=== PATIENT | female | born 1965 | race Caucasian/White ===

== ENCOUNTER 2017-11-22 06:51 | Day surgery (SDC) | payer MEDICAID ==
[2017-10-18 09:15] VITALS: BMI 35.4
[2017-11-22] MEDS ORDERED: Propofol 10 mg/ml Inj (20 ML) ONE ×2 (07:49→08:42)
[2017-11-22] MEDS ORDERED: Sodium Chloride 0.9% 1,000 ML IV SCH (08:00)
[2017-11-22 09:29] VITALS: PULSE 70; O2SAT 99
[2017-11-22 15:01] VITALS: BP 122/76; RESP 18; TEMP 98.1
== END 2017-11-22 10:35 | disposition home or self-care (01) ==
LOC: ENDO 06:51
PROVIDERS: ATTEND Internal Medicine Gastroenterology
DX: K63.5 Polyp of colon (principal); K29.30 Chronic superficial gastritis without bleeding; K21.0 Gastro-esophageal reflux disease with esophagitis; K64.1 Second degree hemorrhoids; Z85.3 Personal history of malignant neoplasm of breast; Z90.12 Acquired absence of left breast and nipple
CPT/HCPCS: 43239; 45380; 88305; 88312; 88342; J2001; J2704; J7030; J7040

== ENCOUNTER 2018-06-06 07:43 | Day surgery (SDC) | payer MEDICAID ==
[2017-10-18 09:15] VITALS: BMI 35.4
[2018-06-06] MEDS ORDERED: Propofol 10 mg/ml Inj (20 ML) ONE (09:03)
[2018-06-06] MEDS ORDERED: Esmolol 100 mg/10ml Inj IV ONE (09:16)
[2018-06-06] MEDS ORDERED: Lactated Ringer's 1,000 ML IV SCH (09:30)
[2018-06-06 16:21] VITALS: BP 115/72; PULSE 71; RESP 16; TEMP 97.5; O2SAT 98
== END 2018-06-06 11:23 | disposition home or self-care (01) ==
LOC: ENDO 07:43
PROVIDERS: ATTEND Internal Medicine Gastroenterology
DX: Z12.11 Encounter for screening for malignant neoplasm of colon (principal); K57.30 Diverticulosis of large intestine without perforation or abscess without bleeding; K64.1 Second degree hemorrhoids; Z86.010 Personal history of colon polyps
CPT/HCPCS: 45378; J2001; J2704; J7120

== ENCOUNTER 2018-06-07 21:39 | Emergency (ER) | payer MEDICAID ==
--- NOTE | 2018-06-07 21:41 | ED PDOC ---
Arrival/HPI - General Chief Complaint: Headache Time Seen by Provider: 06/07/18 21:52 Historian: Patient - History of Present Illness Narrative History of Present Illness (Text): 06/07/18 22:17 53 y/o female with PMH of breast cancer, RA, migraines presents to the ED c/o diplopia, chest pressure, and headache x 1 hour. Pt was watching TV when she had acute onset of headache. Describes headache as frontal pressure, typical of her usual migraines, Associated diplopia, photophobia, mild nausea. Pt has never experienced visual changes with her migraines, which she typically gets 2-3 times a year. Diplopia has improved since onset. Pt began to experience left sided chest pressure and SOB while walking to the [facility] ED. She left the [facility] ED without being seen and came here to be evaluated because they were being "unprofessional". Does not have a neurologist or a pest control chemical technician. Of note, pt received first MTX shot for RA approx 1 week ago. Denies fever, chills, cough, congestion, vertigo, dizziness, weakness, numbness, paresthesias, facial droop, difficulty speaking, difficulty walking, palpitations, miguel phoresis, or any other associated symptoms. PMD: Dr. 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) - Anesthesia Hx Anesthesia Reactions: No Hx Malignant Hyperthermia: No - Suicidal Assessment Feels Threatened In Home Enviroment: No Family/Social History - Physician Review Nursing Documentation Reviewed: Yes Family/Social History: No Known Family HX Smoking Status: Never Smoked Hx Alcohol Use: No Hx Substance Use: No Hx Substance Use Treatment: No Allergies/Home Meds Allergies/Adverse Reactions: Allergies iodine Allergy (Intermediate, Verified 06/07/18 21:50) RASH adhesive tape Allergy (Verified 06/07/18 21:50) URTICARIA Home Medications: Home Meds Medication Instructions Recorded Confirmed Zolpidem [Ambien] 5 mg PO HS PRN 10/18/17 06/07/18 Omeprazole 20 mg PO DAILY 06/02/18 06/07/18 Methotrexate [Methotrexate Sodium] 25 mg IJ Q2W 06/06/18 06/07/18 Acetaminophen [Tylenol Arthritis] 650 mg PO PRN PRN 06/07/18 06/07/18 Review of Systems - Physician Review All systems were reviewed & negative as marked: Yes - Review of Systems Constitutional: Normal. absent: Fatigue, Fevers Eyes: Vision Changes (diplopia, blurry vision), Photophobia. absent: Eye Pain ENT: Normal. absent: Hearing Changes, Sore Throat, Sinus Congestion Respiratory: SOB. absent: Cough Cardiovascular: Chest Pain. absent: Palpitations, Syncope Gastrointestinal: Normal. absent: Abdominal Pain, Stool Changes, Nausea, Vomiting Genitourinary Female: Normal. absent: Dysuria, Frequency Musculoskeletal: Normal. absent: Back Pain, Neck Pain Skin: Normal. absent: Rash Neurological: Headache. absent: Dizziness, Focal Weakness, Gait Changes, Speech Changes, Facial Droop, Disequilibrium, Seizure Endocrine: Normal Hemo/Lymphatic: Normal Psychiatric: Normal Physical Exam Vital Signs Reviewed: Yes Temperature: Afebrile Blood Pressure: Normal Pulse: Regular Respiratory Rate: Normal Appearance: Positive for: Well-Appearing, Non-Toxic, Comfortable Pain Distress: None Mental Status: Positive for: Alert and Oriented X 3 - Systems Exam Head: Present: Atraumatic, Normocephalic Pupils: Present: PERRL, Pinpoint Extroacular Muscles: Present: EOMI Conjunctiva: Present: Normal Ears: Present: Normal, NORMAL TM Mouth: Present: Moist Mucous Membranes Pharnyx: Present: Normal. No: ERYTHEMA, EXUDATE Nose (External): Present: Atraumatic Nose (Internal): Present: Normal Inspection Neck: Present: Normal Range of Motion. No: Meningeal Signs, MIDLINE TENDERNESS, Paraspinal Tenderness Respiratory/Chest: Present: Clear to Auscultation, Good Air Exchange, Tender to Palpation (left sided ). No: Respiratory Distress, Accessory Muscle Use Cardiovascular: Present: Regular Rate and Rhythm, Normal S1, S2, Peripheal Pulses Present Abdomen: Present: Normal Bowel Sounds. No: Tenderness, Distention, Peritoneal Signs, Rebound, Guarding Back: Present: Normal Inspection. No: CVA Tenderness, Paraspinal Tenderness Upper Extremity: Present: Normal Inspection, Normal ROM, NORMAL PULSES, Neurovascularly Intact, Capillary Refill < 2s. No: Cyanosis, Edema Lower Extremity: Present: Normal Inspection, NORMAL PULSES, Normal ROM, Neurovascularly Intact, Capillary Refill < 2 s. No: Edema Neurological: Present: GCS=15, CN II-XII Intact, Speech Normal, Motor Func Grossly Intact, Normal Sensory Function, Normal Cerebellar Funct, Gait Normal (no ataxia), Memory Normal Skin: Present: Warm, Dry, Normal Color. No: Rashes, Hot Lymphatic: No: Cervical Adenopathy Psychiatric: Present: Alert, Oriented x 3, Normal Insight, Normal Concentration, Normal Affect, Normal Mood Medical Decision Making ED Course and Treatment: 06/07/18 22:05 Initial Plan: * CBC, CMP * Mg, Phos * Coags * PT/PTT * Troponin * UA, UDS * EKG * CXR * Head CT * Visual Acuity * Reglan * IVF On initial exam, patient appears uncomfortable but in no acute distress. Neurological exam normal except for bilateral pinpoint pupils, patient states they have been like that for approx. 3-4 days. Denies drug use. NIHSS 0. Case reviewed with Dr. Nichols who agrees with plan of care and disposition. EKG: rate 81; NSR; Normal Intervals; No STEMI, nonspecific ST/T wave changes in precordial leads, predominantly V1-3 Will hold ASA until head CT shows no ICH. 22:22 Patient ambulated to the bathroom with no assistance without difficulty. No ataxia. 22:43 Diplopia, SOB, and chest pain completely resolved. Labwork unremarkable CXR: no active disease 23:[address]: negative for acute intracranial pathology Headache has completely resolved. Patient well appearing. Neurological exam unchanged. 00:00 Recommended that patient stay overnight for observation secondary to chest pain and diplopia, although currently resolved. Patient wishes to leave AMA, states she feels fine. Lengthy discussion had with patient regarding risks vs. benefits of leaving AMA. Benefits include but not limited to inpatient observation, further evaluation and treatment of symptoms, neurology consult, cardiology consult, further brain imaging. Risks to leaving include but are not limited to , disability, worsening of symptoms, stroke, vision loss. Patient verbalized understanding. The patient is choosing to leave against medical advice. I have personally explained to the patient that choosing to do so may result in permanent bodily harm, disability, or . I have discussed at great length that without further evaluation and monitoring there may be unforeseen circumstances and/or deterioration causing permanent bodily harm or as a result of their choice. The patient is alert, oriented, and shows the mental capacity to make clear decisions regarding the patients health care at this time. The patient continues to wish to leave against medical advice. In light of the patients decision to leave against medical advice, follow-up has been arranged and the patient is aware of the importance to following up as instructed. The patient has been advised that they should return to the emergency room immediately if they change their mind at any time, or if their condition begins to change or worsen in any way. AMA form signed by me and patient, Hair witnessed. Patient states she will followup with her PMD tomorrow. Followup provided for ophthalmology, neurology, and cardiology. - Lab Interpretations Lab Results: 06/07/18 22:00 06/07/18 22:00 Lab Results 06/07/18 22:41: Influenza Typ A,B (EIA) Negative for flu a/b 06/07/18 22:24: Urine Opiates Screen Negative, Urine Methadone Screen Negative, Ur Barbiturates Screen Negative, Ur Phencyclidine Scrn Negative, Ur Amphetamines Screen Negative, U Benzodiazepines Scrn Negative, U Oth Cocaine Metabols Negative, U Cannabinoids Screen Negative 06/07/18 22:24: Urine Color Light yellow, Urine Appearance Clear, Urine pH 6.0, Ur Specific [place] >= 1.030, Urine Protein Trace H, Urine Glucose (UA) Negative, Urine Ketones Negative, Urine Blood Trace-lysed H, Urine Nitrate Negative, Urine Bilirubin Negative, Urine Urobilinogen 0.2, Ur Leukocyte Esterase Negative, Urine RBC 0 - 2, Urine WBC None, Ur Epithelial Cells None 06/07/18 22:00: PT 11.7, INR 1.03, APTT 27.9 06/07/18 22:00: WBC 7.8, RBC 4.00, Hgb 12.3, Hct 36.9, MCV 92.3, MCH 30.8, MCHC 33.3, RDW 13.4, Plt Count 289, MPV 10.0, Gran % 63.1, Lymph % (Auto) 25.7, Wilkinson % (Auto) 9.7 H, Eos % (Auto) 1.4 L, Baso % (Auto) 0.1, Gran # 4.94, Lymph # (Auto) 2.0, Wilkinson # (Auto) 0.8 H, Eos # (Auto) 0.1, Baso # (Auto) 0.01 06/07/18 22:00: Sodium 140, Potassium 4.0, Chloride 106, Carbon Dioxide 25, Anion Gap 14, BUN 25 H, Creatinine 1.2, Est GFR ( Amer) 57, Est GFR (Non- Af Amer) 47, Random Glucose 154 H, Calcium 9.1, Phosphorus 4.3, Magnesium 1.8, Total Bilirubin 0.3, AST 25, ALT 33, Alkaline Phosphatase 84, Troponin I < 0.01, Total Protein 7.1, Albumin 4.1, Globulin 3.1, Albumin/Globulin Ratio 1.3 I have reviewed the lab results: Yes - RAD Interpretation Narrative RAD Interpretations (Text): EXAM: CT Head without Intravenous Contrast. CLINICAL HISTORY: HEADACHE TECHNIQUE: Axial computed tomography images of the head/brain without intravenous contrast. 1079.16 mGy-cm COMPARISON: None provided. FINDINGS: BRAIN No acute intraparenchymal hemorrhage. No mass lesion. No CT evidence for acute territorial infarct. No midline shift or extra-axial collections. VENTRICLES: No hydrocephalus. ORBITS: The orbits are unremarkable. SINUSES AND MASTOIDS: The paranasal sinuses and mastoid air cells are clear. BONES: No fracture. SOFT TISSUES: Unremarkable. IMPRESSION: No acute intracranial abnormality. Electronically signed on Jun 07, 2018 11:27:31 PM EST by: Savage Shah M.D., COLLEEN Certified By ABR & CBC[facility] Fellowship Trained MRI and CT Specialist EXAM: CXR No active disease, read by [facility] Orders: 06/07/18 22:00 HEAD W/O CONTRAST [CT] Stat CHEST PORTABLE [RAD] Stat Perforator Typist: ED Physician - EKG Interpretation EKG Interpretation (Text): 06/07/18 23:36 Rate 81; NSR; Normal Intervals; No STEMI, nonspecific ST/T wave abnormalities predominantly in V1-V3 Interpreted by ED Physician: Yes Type: 12 lead EKG Comparison: Different from prev. EKG (08/03/14) NIHSS Scale (Blain) Time Performed: 22:04 - How Severe is the Stoke Baseline Level of Consciousness: 0=Alert LOC to Questions: 0=Both comments correct LOC to commands: 0=Obeys both correctly Best Gaze: 0=Normal Visual: 0=No visual loss Facial: 0=Normal Motor Arm - Left: 0=No drift Motor Arm - Right: 0=No drift Motor Leg - Left: 0=No drift Motor Leg - Right: 0=No drift Limb Ataxia: 0=Absent Sensory: 0=Normal Best Language: 0=No aphasia Dysarthia: 0=Normal articulation Extinction & Inattention (Neglect): 0=Normal, no object Score: 0 Risk Level: No Stroke Risk MEREDITH Risk Score for UA/NSTEMI - MEREDITH Risk Score Age > 64: NO 3 or more CAD Risk Factors: NO Known CAD (Stenosis greater than 50%): NO Aspirin use in past 7 days: NO Severe Angina: NO EKG ST changes greater than 0.5mm: NO Positive Cardiac Marker: NO MEREDITH Score: 0 % risk at 14 days of: all cause mortality, new or recurrent VA, or severe recurrent ischemia requiring urgen revascularization: 5% Disposition/Present on Arrival - Present on Arrival Any Indicators Present on Arrival: No History of DVT/PE: No History of Uncontrolled Diabetes: No Urinary Catheter: No History Surgical Site Infection Following: None - Disposition Have Diagnosis and Disposition been Completed?: No Diagnosis: Diplopia, Headache, Chest pain, Left against medical advice Disposition: AGAINST MEDICAL ADVICE Disposition Time: 00:30 Condition: GUARDED Discharge Instructions (ExitCare): Double Vision, Headache, Adult (DC), Leaving Against Medical Advice, Chest Pain (ED) Additional Instructions: Followup with primary doctor tomorrow Followup with neurology tomorrow Followup with cardiology tomorrow Followup with ophthalmology tomorrow Return to ER if you wish to be re-evaluated or if you have any new/worsening symptoms Referrals: Chaim Wright JD, MD [Primary Care Provider] - Follow up with primary Pernell Mcclure MD [Staff Provider] - Follow up with primary Jovanni Valencia MD [Staff Provider] - Follow up with primary Lupillo Cintron MD [Staff Provider] - Follow up with primary Forms: [employer] (Turkish), WORK NOTE
[2018-06-07 21:50] VITALS: O2SAT 99; BMI 34.9
[2018-06-07 22:19] LABS: BASO # 0.01 K/mm3 (0.0-2.0); BASO % 0.1 % (0.0-3.0); EOS # 0.1 (0.0-0.7); EOS % 1.4 % (1.5-5.0); GRAN # 4.94 (1.4-6.5); GRAN % 63.1 % (50.0-68.0); HEMOGLOBIN 12.3 g/dL (12.0-16.0); LYMPH % 25.7 % (22.0-35.0); MEAN CELL VOLUME 92.3 fl (80.0-105.0); MEAN CORPUSCULAR HEMOGLOBIN 30.8 pg (25.0-35.0); MEAN CORPUSCULAR HGB CONC 33.3 g/dl (31.0-37.0); MONO # 0.8 (0.1-0.6); MONO % 9.7 % (1.0-6.0); RED CELL DISTRIBUTION WIDTH 13.4 % (11.5-14.5); WHITE BLOOD COUNT 7.8 10^3/uL (4.5-11.0)
[2018-06-07 22:28] LABS: URINE BILIRUBIN NEGATIVE (NEGATIVE); URINE BLOOD TRACE-LYSED (NEGATIVE); URINE GLUCOSE (UA) NEGATIVE (NEGATIVE); URINE LEUKOCYTE ESTERASE NEGATIVE Leu/uL (NEGATIVE); URINE PROTEIN TRACE mg/dL (<30 mg/dL); URINE UROBILINOGEN 0.2 E.U./dL (<1 E.U./dL)
[2018-06-07 22:29] LABS: URINE APPEARANCE CLEAR (CLEAR); URINE COLOR LIGHT YELLOW (YELLOW)
[2018-06-07 22:31] LABS: URINE RBC 0 - 2 /hpf (0-2)
[2018-06-07 22:36] LABS: INR 1.03; PARTIAL THROMBOPLASTIN TIME 27.9 Seconds (25.1-36.5); PROTHROMBIN TIME 11.7 SECONDS (9.4-12.5)
[2018-06-07 22:39] LABS: ALB/GLOB RATIO 1.3 (1.1-1.8); ALBUMIN 4.1 g/dL (3.0-4.8); ALT/SGPT 33 U/L (7-56); AST/SGOT 25 U/L (14-36); BLOOD UREA NITROGEN 25 mg/dL (7-21); CALCIUM 9.1 mg/dL (8.4-10.5); GFR NON-AFRICAN AMERICAN 47
[2018-06-07] MEDS ORDERED: Sodium Chloride 0.9% 1,000 ML IV STA (22:47)
[2018-06-07 22:50] LABS: TROPONIN I < 0.01 ng/mL
[2018-06-07 23:12] LABS: BARBITURATES, UR NEGATIVE (NEGATIVE); BENZODIAZEPINES, UR NEGATIVE (NEGATIVE); OPIATES, UR NEGATIVE (NEGATIVE); PHENCYCLIDINE, UR NEGATIVE (NEGATIVE)
[2018-06-08 00:45] VITALS: BP 138/72; PULSE 89; RESP 17; TEMP 98.2
--- NOTE | 2018-06-08 10:38 | CT ---
Date of service: 06/07/2018 PROCEDURE: CT HEAD WITHOUT CONTRAST. HISTORY: headache COMPARISON: None available. TECHNIQUE: Axial computed tomography images were obtained through the head/brain without intravenous contrast. Radiation dose: Total exam DLP = 1079.16 mGy-cm. This CT exam was performed using one or more of the following dose reduction techniques: Automated exposure control, adjustment of the mA and/or kV according to patient size, and/or use of iterative reconstruction technique. FINDINGS: HEMORRHAGE: No intracranial hemorrhage. BRAIN: No mass effect or edema. No atrophy or chronic microvascular ischemic changes. VENTRICLES: Unremarkable. No hydrocephalus. CALVARIUM: Unremarkable. PARANASAL SINUSES: Unremarkable as visualized. No significant inflammatory changes. MASTOID AIR CELLS: Unremarkable as visualized. No inflammatory changes. OTHER FINDINGS: None. IMPRESSION: Normal CT of the Head. No intracranial mass, hemorrhage or evidence of acute infarct. The preliminary findings for this examination were reported by [facility] at 11:27 p.m. on 06/07/2018. There is concurrence of this report with the preliminary findings.
--- NOTE | 2018-06-08 17:01 | RAD ---
Date of service: 06/07/2018 HISTORY: chest pain COMPARISON: 12/16/2017 FINDINGS: LUNGS: No active pulmonary disease. PLEURA: No significant pleural effusion identified, no pneumothorax apparent. CARDIOVASCULAR: No aortic atherosclerotic calcification present. Normal cardiac size. No pulmonary vascular congestion. OSSEOUS STRUCTURES: No significant abnormalities. VISUALIZED UPPER ABDOMEN: Normal. OTHER FINDINGS: None. IMPRESSION: No active disease.
--- NOTE | 2018-06-09 07:49 | CARD ---
APPROVED REPORT Date of service: 06/07/2018 EKG Measurement Heart [id number] NM 154P51 [id number] <Conclusion> Normal sinus rhythm Nonspecific T wave abnormality Abnormal ECG
== END 2018-06-08 00:45 | disposition left against medical advice (07) ==
LOC: ED 21:39
DX: H53.2 Diplopia (principal); R51 Headache; R07.9 Chest pain, unspecified; Z85.3 Personal history of malignant neoplasm of breast; Z90.13 Acquired absence of bilateral breasts and nipples
CPT/HCPCS: 70450; 71045; 80053; 80324; 80345; 80346; 80349; 80353; 80358; 80361; 81001; 81025; 83735; 83992; 84100; 84484; 85025; 85610; 85730; 87804; 93005; 96374; 99285; J2765; J7030

== ENCOUNTER 2018-06-09 13:59 | Emergency (ER) | payer MEDICAID ==
[2018-06-09 14:29] VITALS: BMI 35.0
[2018-06-09 14:36] VITALS: RESP 18; TEMP 98.9
--- NOTE | 2018-06-09 15:07 | ED PDOC ---
Arrival/HPI - General Chief Complaint: Headache Time Seen by Provider: 06/09/18 14:49 Historian: Patient - History of Present Illness Narrative History of Present Illness (Text): 06/09/18 15:02 53 year old female, with PMH of breast cancer, RA, and migraines, presents to the ED for evaluation of persistent diplopia, bilateral eye burning and frontal head pressure since 2 days. Patient reports visiting the ED on Saturday with the presented symptoms associated with vertigo, chest pain and shortness of breath. Patient was offered admission at the time but signed out against medical advice. Patient states chest pain and shortness of breath resolved but informs persistent diplopia and burning of eyes. Patient informs contacting Dr. Wright with the persistent symptoms, who subsequently referred patient to the ED for evaluation. Patient denies any other somatic complaints. Patient denies any fever, chills, nausea, vomiting, focal weakness, or recent trauma or injury to the eyes. Patient denies smoking cigarettes or drinking alcohol. Time/Duration: < week Symptom Onset: Gradual Symptom Course: Unchanged Activities at Onset: Light Context: Home Associated Symptoms (Text): 06/09/18 15:23 2 day history of bilateral watery eyes and vertical diplopia. She has frontal he ad pressure. She was seen in the emergency department 2 days ago and had a normal CT scan at that time. She also had chest pain and dyspnea and was advised admission, but signed out AMA. Her chest pain and dyspnea have since resolved. She continues with bilateral burning eyes vertical diplopia and bilateral frontal headache. She spoke with her PMD who directed her to the emergency department for an MRI. She has an appointment tomorrow with an taxation agent and a manufacturing quality engineer. She appears to be in no distress. Past Medical History - Provider Review Nursing Documentation Reviewed: Yes - Infectious Disease Hx of Infectious Diseases: None - Tetanus Immunization Tetanus Immunization: Unknown - Cardiac Hx Cardiac Disorders: No - Pulmonary Hx Respiratory Disorders: No - Neurological Hx Neurological Disorder: No - HEENT Hx HEENT Disorder: No - Renal Hx Renal Disorder: No - Endocrine/Metabolic Hx Endocrine Disorders: No - Hematological/Oncological Hx Blood Disorders: Yes Hx Cancer: Yes (Breast Cancer) - Integumentary Hx Dermatological Disorder: No - Musculoskeletal/Rheumatological Hx Musculoskeletal Disorders: Yes Hx Rheumatoid Arthritis: Yes - Gastrointestinal Hx Gastrointestinal Disorders: No - Genitourinary/Gynecological Hx Genitourinary Disorders: No - Psychiatric Hx Psychophysiologic Disorder: Yes Hx Substance Use: No Other/Comment: Difficulty Sleeping - Surgical History Hx Mastectomy: Yes (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/ 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) - Anesthesia Hx Anesthesia Reactions: No Hx Malignant Hyperthermia: No - Suicidal Assessment Feels Threatened In Home Enviroment: No Family/Social History - Physician Review Nursing Documentation Reviewed: Yes Family/Social History: Unknown Family HX Smoking Status: Never Smoked Hx Alcohol Use: No Hx Substance Use: No Hx Substance Use Treatment: No Allergies/Home Meds Allergies/Adverse Reactions: Allergies iodine Allergy (Intermediate, Verified 06/07/18 21:50) RASH adhesive tape Allergy (Verified 06/07/18 21:50) URTICARIA Home Medications: Home Meds Medication Instructions Recorded Confirmed Zolpidem [Ambien] 5 mg PO HS PRN 10/18/17 06/09/18 Methotrexate [Methotrexate Sodium] 25 mg IJ Q2W 06/06/18 06/09/18 Acetaminophen/Butalbital/Caf 1 tab PO DAILY 06/09/18 06/09/18 [Fioricet] Review of Systems - Physician Review All systems were reviewed & negative as marked: Yes - Review of Systems Constitutional: absent: Fevers Eyes: Vision Changes (Diplopia), Other (Bilateral eye burning). absent: Photophobia, Eye Pain Respiratory: absent: SOB Cardiovascular: absent: Chest Pain Gastrointestinal: absent: Abdominal Pain, Diarrhea, Nausea, Vomiting Genitourinary Female: absent: Dysuria Musculoskeletal: absent: Back Pain, Neck Pain Skin: absent: Rash Neurological: Headache. absent: Dizziness, Focal Weakness, Gait Changes, Speech Changes, Facial Droop, Disequilibrium, Seizure Physical Exam Vital Signs Reviewed: Yes Vital Signs Temp Pulse Resp BP Pulse Ox 06/09/18 14:36 98.9 F 93 H 18 144/86 97 Temperature: Afebrile Blood Pressure: Normal Pulse: Regular Respiratory Rate: Normal Appearance: Positive for: Well-Appearing, Non-Toxic, Comfortable Pain Distress: None Mental Status: Positive for: Alert and Oriented X 3 - Systems Exam Head: Present: Atraumatic, Normocephalic Pupils: Present: PERRL Extroacular Muscles: Present: EOMI Conjunctiva: Present: Normal Ears: Present: NORMAL TM, Normal Canal. No: Erythema, TM Bulging Mouth: Present: Moist Mucous Membranes Pharnyx: No: ERYTHEMA, EXUDATE, TONSILS ENLARGED Neck: Present: Normal Range of Motion. No: Meningeal Signs, MIDLINE TENDERNESS, Paraspinal Tenderness Respiratory/Chest: Present: Clear to Auscultation, Good Air Exchange. No: Respiratory Distress, Accessory Muscle Use Cardiovascular: Present: Regular Rate and Rhythm, Normal S1, S2. No: Murmurs Abdomen: No: Tenderness, Distention, Peritoneal Signs Upper Extremity: Present: Normal Inspection. No: Cyanosis, Edema Lower Extremity: Present: Normal Inspection. No: Edema Neurological: Present: GCS=15, CN II-XII Intact, Speech Normal, Motor Func Grossly Intact, Normal Sensory Function, Normal Cerebellar Funct, Gait Normal, Memory Normal Skin: Present: Warm, Dry, Normal Color. No: Rashes Psychiatric: Present: Alert, Oriented x 3, Normal Insight, Normal Concentration Medical Decision Making ED Course and Treatment: 06/09/18 15:01 Impression: 53 year old female presents to the ED for evaluation of diplopia and bilateral eye burning. Plan: -- EKG -- Labs -- Reassess and disposition Prior Visits: Notes and results from previous visits were reviewed. Progress Notes: 06/09/18 15:26 EKG shows normal sinus rhythm rate approximately [address] or T-wave changes. 06/09/18 18:49 Patient has an appointment with the taxation agent scheduled for tomorrow morning. Discharge home. Follow-up with PMD and neurologist. Follow up in the ER as needed. - RAD Interpretation Radiology Orders: MRI of the brain is read by the radiologist shows no acute findings. Content Creation Manager: Radiologist - Scribe Statement The provider has reviewed the documentation as recorded by the Ervinibseng Mckeon. All medical record entries made by the Ervinibseng were at my direction and personally dictated by me. I have reviewed the chart and agree that the record accurately reflects my personal performance of the history, physical exam, medical decision making, and the department course for this patient. I have also personally directed, reviewed, and agree with the discharge instructions and disposition. Disposition/Present on Arrival - Present on Arrival Any Indicators Present on Arrival: No History of DVT/PE: No History of Uncontrolled Diabetes: No Urinary Catheter: No History of Decub. Ulcer: No History Surgical Site Infection Following: None - Disposition Have Diagnosis and Disposition been Completed?: Yes Diagnosis: Diplopia, Headache Disposition: HOME/ ROUTINE Disposition Time: 18:50 Patient Plan: Discharge Condition: GOOD Discharge Instructions (ExitCare): Headache, Adult, Double Vision, Double Vision (DC) Additional Instructions: Keep appointment with your taxation agent already scheduled for tomorrow morning. Follow-up with your PMD and neurologist. Follow up in ER as needed. Forms: [employer] (Malay)
[2018-06-09 15:43] LABS: BASO # 0.03 K/mm3 (0.0-2.0); BASO % 0.4 % (0.0-3.0); EOS # 0.1 (0.0-0.7); EOS % 1.5 % (1.5-5.0); GRAN # 5.81 (1.4-6.5); GRAN % 67.9 % (50.0-68.0); HEMOGLOBIN 13.5 g/dL (12.0-16.0); LYMPH % 23.7 % (22.0-35.0); MEAN CELL VOLUME 92.1 fl (80.0-105.0); MEAN CORPUSCULAR HEMOGLOBIN 30.4 pg (25.0-35.0); MONO # 0.6 (0.1-0.6); MONO % 6.5 % (1.0-6.0); RBC 4.44 10^6/uL (3.5-6.1); RED CELL DISTRIBUTION WIDTH 13.3 % (11.5-14.5); WHITE BLOOD COUNT 8.6 10^3/uL (4.5-11.0)
[2018-06-09 16:03] LABS: ALB/GLOB RATIO 1.3 (1.1-1.8); ALBUMIN 4.4 g/dL (3.0-4.8); ALT/SGPT 38 U/L (7-56); AST/SGOT 29 U/L (14-36); BLOOD UREA NITROGEN 19 mg/dL (7-21); CALCIUM 10.1 mg/dL (8.4-10.5); GFR NON-AFRICAN AMERICAN > 60
[2018-06-09 16:09] LABS: TROPONIN I < 0.01 ng/mL
[2018-06-09 16:32] VITALS: O2SAT 98
[2018-06-09 18:35] VITALS: BP 138/75; PULSE 79
--- NOTE | 2018-06-09 18:45 | MRI ---
Date of service: 06/09/2018 PROCEDURE: MRI BRAIN WITHOUT CONTRAST HISTORY: diploplia COMPARISON: None available. TECHNIQUE: Multiplanar, multisequence MR images of the brain were obtained without intravenous contrast enhancement. FINDINGS: HEMORRHAGE: None DWI: No evidence of an acute or early subacute infarction. BRAIN PARENCHYMA: Intrinsic signal throughout the price and white matter structures above below the tentorium appears within normal limits including the brainstem. There is no mass effect, parenchymal edema or loss of the corticomedullary differentiation. Midline brain anatomy appears within normal limits including the corpus callosum, brainstem and craniocervical junction. There is no suspicious extra-axial fluid collection identified. VENTRICLES: Unremarkable. No hydrocephalus. CRANIUM: Unremarkable. ORBITS: Questionable limited dysconjugate gaze with the right globe potentially slightly more distracted laterally than the more neutral position left lobe. No gross orbital mass appreciable in this unenhanced examination. Suprasellar cistern appears unremarkable with the optic chiasm unremarkable as well. PARANASAL SINUSES/MASTOIDS: Clear VASCULAR SYSTEM: Skull base flow voids intact. OTHER FINDINGS: None. IMPRESSION: Unremarkable non contrast enhanced MRI of the brain. Incidental potential dysconjugate gaze with no obvious imaging etiology appreciable. Further clinical correlation advised.
--- NOTE | 2018-06-09 20:28 | CARD ---
APPROVED REPORT Date of service: 06/09/2018 EKG Measurement Heart [id number] 140P25 [id number] <Conclusion> Normal sinus rhythm Minor NDSTT abnormalities. Borderline tracing NPT
== END 2018-06-09 19:07 | disposition home or self-care (01) ==
LOC: ED 13:59
DX: H53.2 Diplopia (principal); R51 Headache; M06.9 Rheumatoid arthritis, unspecified; Z85.3 Personal history of malignant neoplasm of breast; Z90.13 Acquired absence of bilateral breasts and nipples

== ENCOUNTER 2018-06-11 20:51 | Emergency (ER) | payer MEDICAID ==
[2018-06-11 21:19] VITALS: BMI 34.9
[2018-06-11 21:21] VITALS: RESP 18; TEMP 98.1
--- NOTE | 2018-06-11 23:02 | ED PDOC ---
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 States pain started while trying to bend her neck laterally. Report intermittent history of this pain, but it was worse tonight. Alleged that she have never seen a Doctor for the pain in the past. Denies trauma, focal weakness, nuchal ridigity, dizziness, nausea, vomiting, chest pain, SOB, paresthesia, any other complaint. Past Medical History - Provider Review Nursing Documentation Reviewed: Yes - Infectious Disease Hx of Infectious Diseases: None - Tetanus Immunization Tetanus Immunization: Unknown - Cardiac Hx Cardiac Disorders: No - Pulmonary Hx Respiratory Disorders: No - Neurological Hx Neurological Disorder: No - HEENT Hx HEENT Disorder: No - Renal Hx Renal Disorder: No - Endocrine/Metabolic Hx Endocrine Disorders: No - Hematological/Oncological Hx Blood Disorders: Yes Hx Cancer: Yes (Breast Cancer) - Integumentary Hx Dermatological Disorder: No - Musculoskeletal/Rheumatological Hx Musculoskeletal Disorders: Yes Hx Rheumatoid Arthritis: Yes - Gastrointestinal Hx Gastrointestinal Disorders: No - Genitourinary/Gynecological Hx Genitourinary Disorders: No - Psychiatric Hx Psychophysiologic Disorder: Yes Hx Substance Use: No Other/Comment: Difficulty Sleeping - Surgical History Hx 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) - Anesthesia Hx Anesthesia Reactions: No Hx Malignant Hyperthermia: No - Suicidal Assessment Feels Threatened In Home Enviroment: No Family/Social History - Physician Review Nursing Documentation Reviewed: Yes Family/Social History: Unknown Family HX Smoking Status: Never Smoked Hx Alcohol Use: No Hx Substance Use: No Hx Substance Use Treatment: No Allergies/Home Meds Allergies/Adverse Reactions: Allergies iodine Allergy (Intermediate, Verified 06/11/18 21:19) RASH adhesive tape Allergy (Verified 06/11/18 21:19) URTICARIA Home Medications: Home Meds Medication Instructions Recorded Confirmed Zolpidem [Ambien] 5 mg PO HS PRN 10/18/17 06/11/18 Methotrexate [Methotrexate Sodium] 25 mg IJ Q2W 06/06/18 06/11/18 Acetaminophen/Butalbital/Caf 1 tab PO DAILY 06/09/18 06/11/18 [Fioricet] Review of Systems - Physician Review All systems were reviewed & negative as marked: Yes - Review of Systems Constitutional: Normal Eyes: Normal ENT: Normal Respiratory: Normal Cardiovascular: Normal Gastrointestinal: Normal Genitourinary Female: Normal Musculoskeletal: Arthralgias (Right shoulder pain), Neck Pain Skin: Normal Neurological: Normal Endocrine: Normal Hemo/Lymphatic: Normal Psychiatric: Normal Physical Exam Vital Signs Reviewed: Yes Vital Signs Temp Pulse Resp BP Pulse Ox 06/11/18 21:19 98.1 F 91 H 18 123/78 97 Temperature: Afebrile Blood Pressure: Normal Pulse: Regular Respiratory Rate: Normal Appearance: Positive for: Well-Appearing, Non-Toxic, Comfortable Pain Distress: None Mental Status: Positive for: Alert and Oriented X 3 - Systems Exam Head: Present: Atraumatic, Normocephalic Pupils: Present: PERRL Extroacular Muscles: Present: EOMI Conjunctiva: Present: Normal Mouth: Present: Moist Mucous Membranes Neck: Present: Normal Range of Motion, Paraspinal Tenderness (Right side). No: MIDLINE TENDERNESS Respiratory/Chest: Present: Clear to Auscultation, Good Air Exchange. No: Respiratory Distress, Accessory Muscle Use Cardiovascular: Present: Regular Rate and Rhythm, Normal S1, S2. No: Murmurs Abdomen: No: Tenderness, Distention, Peritoneal Signs Back: Present: Normal Inspection Upper Extremity: Present: Normal Inspection, Normal ROM, NORMAL PULSES, Neurovascularly Intact, Capillary Refill < 2s. No: Cyanosis, Edema, Tenderness, Swelling Lower Extremity: Present: Normal Inspection. No: Edema Neurological: Present: GCS=15, CN II-XII Intact, Speech Normal Skin: Present: Warm, Dry, Normal Color. No: Rashes Psychiatric: Present: Alert, Oriented x 3, Normal Insight, Normal Concentration Medical Decision Making ED Course and Treatment: 06/12/18 00:34 53yo female in ED for right sided neck and shoulder pain. She was neurologically intact. Her neck was supple with no meningeal signs. she was afebrile. Cervical spine and right shoulder xray - No acute finding Toradol and Valium given in ED and on re evaluation she notes improvement of her pain. - RAD Interpretation Radiology Orders: 06/11/18 21:48 CERVICAL SPINE >18YR W/OBLIQUE [RAD] Stat 06/11/18 21:49 SHOULDER RIGHT [RAD] Stat - Medication Orders Current Medication Orders: Discontinued Medications Diazepam (Valium) 5 mg PO ONCE ONE; Protocol Stop: 06/11/18 21:50 Last Admin: 06/11/18 21:58 Dose: 5 mg Ketorolac Tromethamine (Toradol) 60 mg IM STAT STA Stop: 06/11/18 21:50 Last Admin: 06/11/18 22:01 Dose: 60 mg MAR Pain Assessment Document 06/11/18 22:01 AD (Rec: 06/11/18 22:02 AD [id number]) Pain Reassessment Is this a pain reassessment? No Presence of Pain Presence of Pain Yes Pain Scale Used Protocol: PSCALES Pain Scale Used Numeric Location Upper or Lower Upper Pain Location Body Site Back IM Administration Charges Document 06/11/18 22:01 AD (Rec: 06/11/18 22:02 AD [id number]) Injection Site MAR Injection Site Right Gluteus João Charges for Administration # of IM Administrations 1 Disposition/Present on Arrival - Present on Arrival Any Indicators Present on Arrival: No History of DVT/PE: No History of Uncontrolled Diabetes: No Urinary Catheter: No History of Decub. Ulcer: No History Surgical Site Infection Following: None - Disposition Have Diagnosis and Disposition been Completed?: Yes Diagnosis: Neck pain, Shoulder pain Disposition: HOME/ ROUTINE Disposition Time: 23:05 Patient Plan: Discharge Condition: STABLE Discharge Instructions (ExitCare): Neck Pain, Shoulder Pain (DC) Additional Instructions: Follow up with your Doctor/Orthopedist Return to ED for any new or worsening symptoms Prescriptions: Acetaminophen with Codeine [Tylenol with Codeine #3 Tablet] 1 each PO Q6 #7 tablet Referrals: Benjamin Sharif III, MD [Medical Doctor] - Follow up with primary Forms: [employer] ([employer])
[2018-06-11 23:41] VITALS: BP 125/84; PULSE 85; O2SAT 100
--- NOTE | 2018-06-12 08:58 | RAD ---
Date of service: 06/11/2018 PROCEDURE: Cervical Spine Radiographs. HISTORY: Pain. COMPARISON: None available. FINDINGS: BONES: Alignment maintained. No fracture. Dens Intact. DISC SPACES: Normal. SOFT TISSUES: Normal. No prevertebral soft tissue swelling. OTHER FINDINGS: There is facet arthropathy at C5-6 with mild anterior subluxation IMPRESSION: There is facet arthropathy at C5-6 with mild anterior subluxation
--- NOTE | 2018-06-12 08:59 | RAD ---
Date of service: 06/11/2018 PROCEDURE: Radiographs of the Right Shoulder HISTORY: shoudler pain COMPARISON: No prior. FINDINGS: BONES: Normal. No fracture. JOINTS: Normal. Glenohumeral and acromioclavicular joints preserved. No osteoarthritis. SOFT TISSUES: Normal. OTHER FINDINGS: None. IMPRESSION: Normal radiographs of the right shoulder.
== END 2018-06-11 23:15 | disposition home or self-care (01) ==
LOC: ED 20:51
DX: M54.2 Cervicalgia (principal); M25.511 Pain in right shoulder; M06.9 Rheumatoid arthritis, unspecified; Z85.3 Personal history of malignant neoplasm of breast
CPT/HCPCS: 72050; 73030; 81025; 96372; 99283; J1885

== ENCOUNTER 2018-06-21 11:46 | Observation (INO) | payer MEDICAID ==
[2018-06-21 11:46] VITALS: BMI 34.9
[2018-06-21 12:02] VITALS: RESP 18
--- NOTE | 2018-06-21 12:16 | ED PDOC ---
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 Patient reports also experiencing numbness sometimes, however does not experience this at this time. Patient denies any injury/trauma to back, or any other complaints at this time. Also, patient mentions having back surgery in the past, herniated disc was removed. Allergic to iodine. PMD: Dr. Chaim Wright Past Medical History - Provider Review Nursing Documentation Reviewed: Yes - Infectious Disease Hx of Infectious Diseases: None - Tetanus Immunization Tetanus Immunization: Unknown - Reproductive Currently : Unknown - Cardiac Hx Cardiac Disorders: No - Pulmonary Hx Respiratory Disorders: No - Neurological Hx Neurological Disorder: No - HEENT Hx HEENT Disorder: No - Renal Hx Renal Disorder: No - Endocrine/Metabolic Hx Endocrine Disorders: No - Hematological/Oncological Hx Blood Disorders: Yes Hx Cancer: Yes (Breast Cancer) - Integumentary Hx Dermatological Disorder: No - Musculoskeletal/Rheumatological Hx Musculoskeletal Disorders: Yes Hx Rheumatoid Arthritis: Yes - Gastrointestinal Hx Gastrointestinal Disorders: No - Genitourinary/Gynecological Hx Genitourinary Disorders: No - Psychiatric Hx Psychophysiologic Disorder: Yes Hx Substance Use: No Other/Comment: Difficulty Sleeping - Surgical History Hx Mastectomy: Yes (Bilateral mastectomy/ 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) - Anesthesia Hx Anesthesia Reactions: No Hx Malignant Hyperthermia: No - Suicidal Assessment Feels Threatened In Home Enviroment: No Family/Social History - Physician Review Nursing Documentation Reviewed: Yes Family/Social History: No Known Family HX Smoking Status: Never Smoked Hx Alcohol Use: No Hx Substance Use: No Hx Substance Use Treatment: No Allergies/Home Meds Allergies/Adverse Reactions: Allergies iodine Allergy (Intermediate, Verified 06/21/18 11:52) RASH adhesive tape Allergy (Verified 06/21/18 11:52) URTICARIA Home Medications: Home Meds Medication Instructions Recorded Confirmed Zolpidem [Ambien] 5 mg PO HS PRN 10/18/17 06/21/18 Methotrexate [Methotrexate Sodium] 25 mg IJ Q2W 06/06/18 06/21/18 Acetaminophen [Tylenol Arthritis] 2 tab PO DAILY 06/21/18 06/21/18 Cyclobenzaprine [Flexeril] 1 tab PO BID PRN 06/21/18 06/21/18 Review of Systems - Physician Review All systems were reviewed & negative as marked: Yes - Review of Systems Constitutional: absent: Fevers, Other (no injury/trauma to back) Musculoskeletal: Back Pain (lower region) Physical Exam - Physical Exam Narrative Physical Exam (Text): Gen: VS reviewed, alert, well developed, well nourished, nontoxic, moderate distress secondary to pain. ENT: normal pharynx. Eye: EOMI, PERRL. Neck: no JVD, supple, no adenopathy. CV: regular rate, regular rhythm, no rubs, no murmur, no gallops, S1, S2, pulses equal and strong. Pulm: no distress, clear to auscultation, no wheeze, no rhonchi, breath sounds equal, no rales. Abd: soft, nontender, no guarding, no rebound, no rigidity, normal bowel sounds. Ext: no edema. limited ROM to hip secondary to pain Skin: good color, no rash, no cyanosis. Psych: responds appropriately to questions, normal affect. Neuro: oriented x 3, CN2-12 intact grossly, motor intact, sensation intact. Vital Signs Temp Pulse Resp BP Pulse Ox 06/21/18 11:46 98.0 F 106 H 18 135/71 96 Medical Decision Making ED Course and Treatment: 06/21/18 12:17 Impression: 53 year old female with lower back pain. Plan: -- Tylenol -- Flexeril -- Decadron Inj -- Toradol -- Reassess and disposition Prior Visits: Notes and results from previous visits were reviewed. Patient last seen here on 06/11/2018 for right-sided neck pain. Patient was discharged home. Progress Notes: 06/21/18 15:26 patient has been observed for several hours and despite multiple interventions for analgesia has not had any significant improvement in pain. there are no neuro deficits at this time and i do not feel emergent advanced imaging is warranted at this time. i have discussed with the patient the importance of getting an eventual mri of the low back. 06/21/18 16:23 1619: admit refused by dr. wright 06/21/18 16:[address] telles to the hospitalist service. patient to be admitted for intractable low back pain - Ervinibseng Statement The provider has reviewed the documentation as recorded by the Shaun Cordoba Provider Ervinibe Attestation: All medical record entries made by the Shaun were at my direction and personally dictated by me. I have reviewed the chart and agree that the record accurately reflects my personal performance of the history, physical exam, medical decision making, and the department course for this patient. I have also personally directed, reviewed, and agree with the discharge instructions and disposition. Disposition/Present on Arrival - Present on Arrival Any Indicators Present on Arrival: No History of DVT/PE: No History of Uncontrolled Diabetes: No Urinary Catheter: No History of Decub. Ulcer: No History Surgical Site Infection Following: None - Disposition Have Diagnosis and Disposition been Completed?: Yes Diagnosis: Intractable low back pain Disposition: HOSPITALIZED Disposition Time: 16:27 Patient Plan: Observation Patient Problems: Current Active Problems Problem Status Onset Intractable low back pain Acute Condition: STABLE
[2018-06-21] MEDS ORDERED: oxyCODONE 10 mg Immediate Release Tab PO STA (14:08)
[2018-06-21 15:50] LABS: BASO # 0.01 K/mm3 (0.0-2.0); BASO % 0.1 % (0.0-3.0); EOS % 0.2 % (1.5-5.0); LYMPH # 0.7 (1.2-3.4); LYMPH % 5.5 % (22.0-35.0); MEAN CORPUSCULAR HEMOGLOBIN 30.5 pg (25.0-35.0); MEAN CORPUSCULAR HGB CONC 33.2 g/dl (31.0-37.0); MONO # 0.4 (0.1-0.6); MONO % 3.3 % (1.0-6.0); PLATELET COUNT 313 10^3/uL (120.0-450.0); RBC 4.26 10^6/uL (3.5-6.1); RED CELL DISTRIBUTION WIDTH 13.5 % (11.5-14.5); WHITE BLOOD COUNT 12.6 10^3/uL (4.5-11.0)
[2018-06-21 16:07] LABS: BLOOD UREA NITROGEN 15 mg/dL (7-21); CALCIUM 9.7 mg/dL (8.4-10.5); GFR NON-AFRICAN AMERICAN > 60
[2018-06-21 16:29] LABS: ATYPICAL LYMPHOCYTE 1 % (0.0-0.0); BAND 2 % (0-2); LYMPHOCYTE 5 % (22.0-35.0); MONOCYTE 1 % (1.0-6.0); NEUTROPHIL 91 % (50.0-70.0)
[2018-06-21] MEDS ORDERED: Morphine 2 mg/ml ISec IVP PRN (17:08)
--- NOTE | 2018-06-21 17:35 | CP.PCM.HP ---
<Mian Peterson - Last Filed: 06/21/18 18:33> History of Present Illness - History of Present Illness History of Present Illness: Mian Peterson PGY1, History and Physical for Dr Melisa Brady Pt is a 53 yo female with a PMH of RA, OA, sciatica, breast cancer, who presents to the emergency department complaining of low back pain which started yesterday. Pt states she has chronic back pain and had a flare similar to this about 4 months ago. She states the pain is worse on the left side and radiates to her hip. She states she tried using heating pads, taking a shower, and doing stretches on the floor, none of which helped. Pt denies loss of urinary control, saddle anesthesia. Pt states the pain is worsened by movement, and relieved somewhat by laying flat. A 12 point ROS was obtained and added to the HPI where appropriate. PMH: RA, OA, sciatica, breast cancer, and chronic low back pain PSH: discectomy/ "shaved disc" 2006, x2 FH: mother Breast cancer with monica. Father alzheimers, alive SH: denies tobacco, alcohol, illicit drugs Allergies: Iodine, hives. Present on Admission - Present on Admission Any Indicators Present on Admission: No Review of Systems - Review of Systems Review of Systems: a 12 point ROS was obtained and added to the HPI Past Patient History - Infectious Disease Hx of Infectious Diseases: None - Tetanus Immunizations Tetanus Immunization: Unknown - Past Social History Smoking Status: Never Smoked - CARDIAC Hx Cardiac Disorders: No - PULMONARY Hx Respiratory Disorders: No - NEUROLOGICAL Hx Neurological Disorder: No - HEENT Hx HEENT Problems: No - RENAL Hx Chronic Kidney Disease: No - ENDOCRINE/METABOLIC Hx Endocrine Disorders: No - HEMATOLOGICAL/ONCOLOGICAL Hx Blood Disorders: Yes Hx Cancer: Yes (Breast Cancer) - INTEGUMENTARY Hx Dermatological Problems: No - MUSCULOSKELETAL/RHEUMATOLOGICAL Hx Musculoskeletal Disorders: Yes Hx Rheumatoid Arthritis: Yes - GASTROINTESTINAL Hx Gastrointestinal Disorders: No - GENITOURINARY/GYNECOLOGICAL Hx Genitourinary Disorders: No - PSYCHIATRIC Hx Psychophysiologic Disorder: Yes Hx Substance Use: No Other/Comment: Difficulty Sleeping - SURGICAL HISTORY Hx Mastectomy: 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 absent: Accessory Muscle Use, Respiratory Distress - Cardiovascular Exam Cardiovascular Exam: RRR, +S1, +S2. absent: Diastolic murmur, Systolic Murmur - GI/Abdominal Exam GI & Abdominal Exam: Normal Bowel Sounds, Soft. absent: Tenderness - Extremities Exam Extremities exam: Positive for: full ROM, normal inspection, pedal pulses present. Negative for: calf tenderness, pedal edema - Back Exam Back exam: tenderness. absent: FULL ROM Additional comments: back pain, difficulty moving - Neurological Exam Neurological exam: Alert, Oriented x3 - Psychiatric Exam Psychiatric exam: Normal Affect, Normal Mood - Skin Skin Exam: Dry, Intact, Warm Results - Vital Signs Recent Vital Signs: Last Vital Signs Temp 98.0 F 06/21/18 11:46 Pulse 85 06/21/18 15:38 Resp 18 06/21/18 15:38 BP 126/84 06/21/18 15:38 Pulse Ox 97 06/21/18 15:38 - Labs Result Diagrams: 06/21/18 15:40 06/21/18 15:40 Labs: Laboratory Results - last 24 hr 06/21/18 06/21/18 15:40 15:40 WBC 12.6 H D RBC 4.26 Hgb 13.0 Hct 39.2 MCV 92.0 MCH 30.5 MCHC 33.2 RDW 13.5 Plt Count 313 MPV 10.0 Neut % (Auto) 90.9 H Lymph % (Auto) 5.5 L [place] % (Auto) 3.3 Eos % (Auto) 0.2 L Baso % (Auto) 0.1 Lymph # (Auto) 0.7 L [place] # (Auto) 0.4 Eos # (Auto) 0.0 Baso # (Auto) 0.01 Absolute Neuts (auto) 11.47 H Neutrophils % (Manual) 91 H Band Neutrophils % 2 Lymphocytes % (Manual) 5 L Atypical Lymphs % 1 H Monocytes % (Manual) 1 Sodium 137 Potassium 4.5 Chloride 104 Carbon Dioxide 26 Anion Gap 12 BUN 15 Creatinine 0.8 Est GFR ( Amer) > 60 Est GFR (Non-Af Amer) > 60 Random Glucose 140 H Calcium 9.7 Assessment & Plan - Assessment and Plan (Free Text) Assessment: Pt is a 53 yo female with a PMH of RA, OA, sciatica, breast cancer, who presents to the emergency department complaining of low back pain which started yesterday. Plan: Intractable Back Pain - in the setting of RA, likely a contributing factor - Lumbar spine xrays: - given tylenol, flexeril, dexamethasone, toradol, oxycodone - diazapam 5q8 PRN - toradol 30mg IV, PRN max 4 doses - lidoderm patch - morphine 1mg IVPq6 - will reevaluate tomorrow in the morning - PT eval and treat Ppx - HHD - SCD Pt seen, examined, assessment and plan discussed with Dr Melisa Peterson PGY1, Internal Medicine Resident - Date & Time Date: 06/21/18 Time: 17:55 <Melisa Brady R - Last Filed: 06/22/18 14:22> Results - Vital Signs Recent Vital Signs: Last Vital Signs Temp 98.1 F 06/22/18 07:58 Pulse 88 06/22/18 07:58 Resp 18 06/22/18 07:58 BP 124/71 06/22/18 07:58 Pulse Ox 100 06/22/18 07:58 - Labs Result Diagrams: 06/22/18 07:15 06/22/18 07:15 Labs: Laboratory Results - last 24 hr 06/21/18 06/21/18 06/22/18 15:40 15:40 07:15 WBC 12.6 H D 20.7 H D RBC 4.26 4.27 Hgb 13.0 12.9 Hct 39.2 39.6 MCV 92.0 92.7 MCH 30.5 30.2 MCHC 33.2 32.6 RDW 13.5 13.6 Plt Count 313 341 MPV 10.0 10.4 Neut % (Auto) 90.9 H 90.5 H Lymph % (Auto) 5.5 L 5.1 L [place] % (Auto) 3.3 4.4 Eos % (Auto) 0.2 L 0.0 L Baso % (Auto) 0.1 0.0 Lymph # (Auto) 0.7 L 1.1 L [place] # (Auto) 0.4 0.9 H Eos # (Auto) 0.0 0.0 Baso # (Auto) 0.01 0.00 Absolute Neuts (auto) 11.47 H 18.72 H Neutrophils % (Manual) 91 H Band Neutrophils % 2 Lymphocytes % (Manual) 5 L Atypical Lymphs % 1 H Monocytes % (Manual) 1 Sodium 137 Potassium 4.5 Chloride 104 Carbon Dioxide 26 Anion Gap 12 BUN 15 Creatinine 0.8 Est GFR ( Amer) > 60 Est GFR (Non-Af Amer) > 60 Random Glucose 140 H Calcium 9.7 Total Bilirubin AST ALT Alkaline Phosphatase Total Protein Albumin Globulin Albumin/Globulin Ratio 06/22/18 07:15 WBC RBC Hgb Hct MCV MCH MCHC RDW Plt Count MPV Neut % (Auto) Lymph % (Auto) [place] % (Auto) Eos % (Auto) Baso % (Auto) Lymph # (Auto) [place] # (Auto) Eos # (Auto) Baso # (Auto) Absolute Neuts (auto) Neutrophils % (Manual) Band Neutrophils % Lymphocytes % (Manual) Atypical Lymphs % Monocytes % (Manual) Sodium 138 Potassium 4.3 Chloride 104 Carbon Dioxide 22 Anion Gap 16 BUN 22 H Creatinine 0.9 Est GFR ( Amer) > 60 Est GFR (Non-Af Amer) > 60 Random Glucose 240 H Calcium 9.8 Total Bilirubin 0.4 AST 19 ALT 10 Alkaline Phosphatase 95 Total Protein 8.0 Albumin 4.5 Globulin 3.5 Albumin/Globulin Ratio 1.3 Attending/Attestation - Attestation I have personally seen and examined this patient.: Yes I have fully participated in the care of the patient.: Yes I have reviewed all pertinent clinical information: Yes Notes (Text): Patient seen and examined by me with resident at 4:40 PM on 06/21/18 in the emergency room. Case including HPI, physical exam, and assessment and plan dis cussed with resident. Agree with above with following additions/corrections. CC: Right sided back pain. Patient is a 53-year-old female past medical history significant for osteoarthritis, sciatica, left breast cancer status post bilateral mastectomy, and spinal discectomy presents to the emergency room with lower right-sided back pain. Patient states this happened approximately 4 or 5 months ago. At that time, patient was able to rest at home and symptoms improved after 4 days. Patient states approximately one week ago she was in the emergency room with neck stiffness and pain. She states that she has arthritis and this may all be coming from her arthritis. She states the pain in her right lower back started yesterday. She states that she was wearing heavy boots and thinks that that may have aggravated her back. She tried Flexeril home without relief. States she was unable to weight bear at home. She denies any radiation of the pain down her legs. No tingling or numbness. On a scale 1-10, 10 being the worst pain she has ever felt, she states the pain is a 10 out of 10. Patient also tried ice packs without any relief. Tried stretching without any relief. Patient states she is not able to move from side to side in the bed. She is unable to sit up. Pain medications helped a little. Patient denies any nausea, vomiting, or abdominal pain. No headaches or dizziness. No lightheadedness. No chest pain or shortness of breath. No fevers or chills. No dysuria. No diarrhea or constipation. 12 point review of systems reviewed by me. Please see above HPI. All other systems negative. Medications at home: Flexeril as needed, "methotrexate injections" Physical exam: General: Awake and alert lying in bed in no acute distress HEENT: Normocephalic, atraumatic. Extraocular muscles intact, pupils equal and reactive, no scleral icterus. Oropharynx is pink and moist. No pharyngeal erythema or exudate apreciated. Neck is supple. Hearing grossly intact. Ears and nose externally unremarkable. Cardiovascular: Regular rhythm. Normal S1 and S2. No murmurs, rubs, or gallops appreciated Pulmonary: Normal respiratory effort. No rhonchi, rales, or wheezing appreciated. Gastrointestinal: Soft, nondistended. Nontender. Positive bowel sounds all 4 quadrants. No guarding. Musculoskeletal: Moves all extremities. Decreased range of motion bilateral lower extremities. Positive straight leg test bilaterally. Positive lumbar and sacral paraspinal muscle tenderness. Central nervous system: AAOx3, CN 2-12 grossly intact. Dermatologic: Skin warm and dry. Assessment and plan: Patient is a 53-year-old female past medical history significant for osteoarthritis, sciatica, left breast cancer status post bilateral mastectomy, and spinal discectomy presents to the emergency room with lower right-sided back pain. 1. Intractable right sided back pain. Gait instability. Lumbar x-ray per radiolo gist showed multilevel degenerative spondylosis mostly affecting the facet joints that hurt L5-S1 through L3-L4 levels in decreasing order of severity. Place on Valium as needed. Place on toradol. PT eval and treat. Place on lidoderm patch. Morphine prn. Patient received dexamethasone in the ED. 2. Osteoarthritis. Patient to continue to follow with her liaison officer. 3. Leukocytosis. Likely reactive. Continue to monitor. Case discussed in detail with the patient regarding current diagnosis and treatment plan. All questions answered.
[2018-06-21] MEDS: Lidocaine 5% Patch TD SCH (17:52)
--- NOTE | 2018-06-21 18:08 | RAD ---
Date of service: 06/21/2018 PROCEDURE: Radiographs of the Lumbar Spine. HISTORY: Pain COMPARISON: No prior. FINDINGS: BONES: No acute compression fractures no retropulsed fragments. DISC SPACES: Minor multilevel degenerative spondylosis. There is moderate to significant facet arthropathy L5-S1 through the L3-L4 levels in decreasing order of severity. Disc space heights are relatively maintained. Small marginal anterolateral osteophyte formation seen at several levels. OTHER FINDINGS: Note made of 2 metallic radiopaque densities overlying the pelvis bilaterally. Findings could represent Essure hardware. Clinical correlation recommended. IMPRESSION: Multilevel degenerative spondylosis most notably affecting the facet joints L5-S1 through L3-L4 levels in decreasing order of severity.
[2018-06-22 08:00] VITALS: BP 124/71; PULSE 88; TEMP 98.1; O2SAT 100
[2018-06-22 08:02] LABS: HEMOGLOBIN 12.9 g/dL (12.0-16.0); LYMPH # 1.1 (1.2-3.4); LYMPH % 5.1 % (22.0-35.0); MEAN CELL VOLUME 92.7 fl (80.0-105.0); MEAN CORPUSCULAR HEMOGLOBIN 30.2 pg (25.0-35.0); MEAN CORPUSCULAR HGB CONC 32.6 g/dl (31.0-37.0); MEAN PLATELET VOLUME 10.4 fl (7.0-11.0); MONO # 0.9 (0.1-0.6); MONO % 4.4 % (1.0-6.0); RBC 4.27 10^6/uL (3.5-6.1); RED CELL DISTRIBUTION WIDTH 13.6 % (11.5-14.5)
[2018-06-22 08:13] LABS: WHITE BLOOD COUNT 20.7 10^3/uL (4.5-11.0)
[2018-06-22 08:39] LABS: ALB/GLOB RATIO 1.3 (1.1-1.8); ALBUMIN 4.5 g/dL (3.0-4.8); ALT/SGPT 10 U/L (7-56); AST/SGOT 19 U/L (14-36); BLOOD UREA NITROGEN 22 mg/dL (7-21); CALCIUM 9.8 mg/dL (8.4-10.5); GFR NON-AFRICAN AMERICAN > 60
[2018-06-22] MEDS: Lidocaine 5% Patch TD SCH (11:04)
--- NOTE | 2018-06-22 16:04 | CP.PCM.DIS ---
<Mian Petersonron - Last Filed: 06/22/18 16:10> Provider - Provider Date of Admission: 06/22/18 12:42 Attending physician: Melisa Brady DO Primary care physician: Chaim Wright JD, MD Time Spent in preparation of Discharge (in minutes): 40 Diagnosis - Discharge Diagnosis (1) Intractable back pain Status: Acute Hospital Course - Lab Results Lab Results: Most Recent Lab Values WBC 20.7 10^3/uL (4.5-11.0) H D 06/22/18 07:15 RBC 4.27 10^6/uL (3.5-6.1) 06/22/18 07:15 Hgb 12.9 g/dL (12.0-16.0) 06/22/18 07:15 Hct 39.6 % (36.0-48.0) 06/22/18 07:15 MCV 92.7 fl (80.0-105.0) 06/22/18 07:15 MCH 30.2 pg (25.0-35.0) 06/22/18 07:15 MCHC 32.6 g/dl (31.0-37.0) 06/22/18 07:15 RDW 13.6 % (11.5-14.5) 06/22/18 07:15 Plt Count 341 10^3/uL (120.0-450.0) 06/22/18 07:15 MPV 10.4 fl (7.0-11.0) 06/22/18 07:15 Neut % (Auto) 90.5 % (50.0-68.0) H 06/22/18 07:15 Lymph % (Auto) 5.1 % (22.0-35.0) L 06/22/18 07:15 [place] % (Auto) 4.4 % (1.0-6.0) 06/22/18 07:15 Eos % (Auto) 0.0 % (1.5-5.0) L 06/22/18 07:15 Baso % (Auto) 0.0 % (0.0-3.0) 06/22/18 07:15 Lymph # (Auto) 1.1 (1.2-3.4) L 06/22/18 07:15 [place] # (Auto) 0.9 (0.1-0.6) H 06/22/18 07:15 Eos # (Auto) 0.0 (0.0-0.7) 06/22/18 07:15 Baso # (Auto) 0.00 K/mm3 (0.0-2.0) 06/22/18 07:15 Absolute Neuts (auto) 18.72 (1.4-6.5) H 06/22/18 07:15 Neutrophils % (Manual) 91 % (50.0-70.0) H 06/21/18 15:40 Band Neutrophils % 2 % (0-2) 06/21/18 15:40 Lymphocytes % (Manual) 5 % (22.0-35.0) L 06/21/18 15:40 Atypical Lymphs % 1 % (0.0-0.0) H 06/21/18 15:40 Monocytes % (Manual) 1 % (1.0-6.0) 06/21/18 15:40 Sodium 138 mmol/L (132-148) 06/22/18 07:15 Potassium 4.3 mmol/L (3.6-5.0) 06/22/18 07:15 Chloride 104 mmol/L (98-107) 06/22/18 07:15 Carbon Dioxide 22 mmol/L (21-33) 06/22/18 07:15 Anion Gap 16 (10-20) 06/22/18 07:15 BUN 22 mg/dL (7-21) H 06/22/18 07:15 Creatinine 0.9 mg/dl (0.7-1.2) 06/22/18 07:15 Est GFR ( Amer) > 60 06/22/18 07:15 Est GFR (Non-Af Amer) > 60 06/22/18 07:15 Random Glucose 240 mg/dL (70-110) H 06/22/18 07:15 Calcium 9.8 mg/dL (8.4-10.5) 06/22/18 07:15 Total Bilirubin 0.4 mg/dL (0.2-1.3) 06/22/18 07:15 AST 19 U/L (14-36) 06/22/18 07:15 ALT 10 U/L (7-56) 06/22/18 07:15 Alkaline Phosphatase 95 U/L (38-126) 06/22/18 07:15 Total Protein 8.0 g/dL (5.8-8.3) 06/22/18 07:15 Albumin 4.5 g/dL (3.0-4.8) 06/22/18 07:15 Globulin 3.5 gm/dL 06/22/18 07:15 Albumin/Globulin Ratio 1.3 (1.1-1.8) 06/22/18 07:15 - Hospital Course Hospital Course: Hospitalization Pt is a 53 yo female with a PMH of RA, OA, sciatica, breast cancer, who presents to the emergency department complaining of low back pain which started yesterday. Pt denies loss of urinary control, saddle anesthesia. Pt states the pain is worsened by movement, and relieved somewhat by laying flat. Pt states she has chronic back pain and had a flare similar to this about 4 months ago. She states the pain is worse on the left side and radiates to her hip. She states she tried using heating pads, taking a shower, and doing stretches on the floor, none of which helped. Discharge Please follow up with primary care physician, Dr Chaim Wright within 3-5 days. Please follow up with the physical therapist. First, apply a heating pad. Second, performing stretches. After the stretches, apply ice to the affected area. Please continue taking home medications. Sent home with a prescription for Valium 5mg to be taking every 8 hours as needed. - Date & Time of H&P Date of H&P: 06/22/18 Time of H&P: 06:00 Discharge Exam - Head Exam Head Exam: ATRAUMATIC, NORMOCEPHALIC - Eye Exam Eye Exam: EOMI - ENT Exam ENT Exam: Mucous Membranes Moist - Neck Exam Neck exam: Full Rom - Respiratory Exam Respiratory Exam: Clear to PA & Lateral, NORMAL BREATHING PATTERN. absent: Accessory Muscle Use, Respiratory Distress - Cardiovascular Exam Cardiovascular Exam: RRR, +S1, +S2. absent: Diastolic murmur, Systolic Murmur - GI/Abdominal Exam GI & Abdominal Exam: Normal Bowel Sounds, Unremarkable. absent: Tenderness - Extremities Exam Extremities exam: full ROM - Neurological Exam Neurological exam: Alert, Oriented x3 - Psychiatric Exam Psychiatric exam: Normal Affect, Normal Mood - Skin Skin Exam: Dry, Intact, Warm Discharge Plan - Discharge Medications Prescriptions: diaZEpam [Valium] 5 mg PO Q8H PRN #6 tab PRN Reason: Muscle Spasm - Follow Up Plan Condition: STABLE Disposition: HOME/ ROUTINE Instructions: Low Back Pain (DC) Additional Instructions: 1. Please follow up with your primary care physician, Dr Chaim Wright within 3-5 days 2. Please follow up with the physical therapist of your primary care physicians choosing 3. For your back pain, try: First, applying a heating pad. Second, performing stretches. After the stretches, apply ice to the affected area. 4. Please continue taking your home medications 5. You are being sent home with a prescription for Valium 5mg to be taking every 8 hours as needed 6. If your symptoms return or worsen, please go to the nearest emergency department Referrals: Chaim Wright JD, MD [Primary Care Provider] - <Melisa Brady - Last Filed: 06/25/18 21:18> Provider - Provider Date of Admission: 06/21/18 16:28 Attending physician: Melisa Brady DO Primary care physician: Chaim Wright JD, MD Hospital Course - Lab Results Lab Results: Most Recent Lab Values WBC 20.7 10^3/uL (4.5-11.0) H D 06/22/18 07:15 RBC 4.27 10^6/uL (3.5-6.1) 06/22/18 07:15 Hgb 12.9 g/dL (12.0-16.0) 06/22/18 07:15 Hct 39.6 % (36.0-48.0) 06/22/18 07:15 MCV 92.7 fl (80.0-105.0) 06/22/18 07:15 MCH 30.2 pg (25.0-35.0) 06/22/18 07:15 MCHC 32.6 g/dl (31.0-37.0) 06/22/18 07:15 RDW 13.6 % (11.5-14.5) 06/22/18 07:15 Plt Count 341 10^3/uL (120.0-450.0) 06/22/18 07:15 MPV 10.4 fl (7.0-11.0) 06/22/18 07:15 Neut % (Auto) 90.5 % (50.0-68.0) H 06/22/18 07:15 Lymph % (Auto) 5.1 % (22.0-35.0) L 06/22/18 07:15 [place] % (Auto) 4.4 % (1.0-6.0) 06/22/18 07:15 Eos % (Auto) 0.0 % (1.5-5.0) L 06/22/18 07:15 Baso % (Auto) 0.0 % (0.0-3.0) 06/22/18 07:15 Lymph # (Auto) 1.1 (1.2-3.4) L 06/22/18 07:15 [place] # (Auto) 0.9 (0.1-0.6) H 06/22/18 07:15 Eos # (Auto) 0.0 (0.0-0.7) 06/22/18 07:15 Baso # (Auto) 0.00 K/mm3 (0.0-2.0) 06/22/18 07:15 Absolute Neuts (auto) 18.72 (1.4-6.5) H 06/22/18 07:15 Neutrophils % (Manual) 91 % (50.0-70.0) H 06/21/18 15:40 Band Neutrophils % 2 % (0-2) 06/21/18 15:40 Lymphocytes % (Manual) 5 % (22.0-35.0) L 06/21/18 15:40 Atypical Lymphs % 1 % (0.0-0.0) H 06/21/18 15:40 Monocytes % (Manual) 1 % (1.0-6.0) 06/21/18 15:40 Sodium 138 mmol/L (132-148) 06/22/18 07:15 Potassium 4.3 mmol/L (3.6-5.0) 06/22/18 07:15 Chloride 104 mmol/L (98-107) 06/22/18 07:15 Carbon Dioxide 22 mmol/L (21-33) 06/22/18 07:15 Anion Gap 16 (10-20) 06/22/18 07:15 BUN 22 mg/dL (7-21) H 06/22/18 07:15 Creatinine 0.9 mg/dl (0.7-1.2) 06/22/18 07:15 Est GFR ( Amer) > 60 06/22/18 07:15 Est GFR (Non-Af Amer) > 60 06/22/18 07:15 Random Glucose 240 mg/dL (70-110) H 06/22/18 07:15 Calcium 9.8 mg/dL (8.4-10.5) 06/22/18 07:15 Total Bilirubin 0.4 mg/dL (0.2-1.3) 06/22/18 07:15 AST 19 U/L (14-36) 06/22/18 07:15 ALT 10 U/L (7-56) 06/22/18 07:15 Alkaline Phosphatase 95 U/L (38-126) 06/22/18 07:15 Total Protein 8.0 g/dL (5.8-8.3) 06/22/18 07:15 Albumin 4.5 g/dL (3.0-4.8) 06/22/18 07:15 Globulin 3.5 gm/dL 06/22/18 07:15 Albumin/Globulin Ratio 1.3 (1.1-1.8) 06/22/18 07:15 Attending/Attestation - Attestation I have personally seen and examined this patient.: Yes I have fully participated in the care of the patient.: Yes I have reviewed all pertinent clinical information, including history, physical exam and plan: Yes Notes (Text): Please note this DC summary is for 06/22/18 Patient seen and examined by me with resident 10AM and prior to discharge on 06/22/18. Case including discharge plan discussed with resident. Agree with above with following additions/corrections. Patient is a 53-year-old female past medical history significant for osteoarthritis, sciatica, left breast cancer status post bilateral mastectomy, and spinal discectomy presents to the emergency room with lower right-sided back pain. Please see H&P for full details. Patient was admitted with intractable right sided back pain, gait instability, osteoarthritis and leukocytosis. Lumbar x-ray per radiologist showed multilevel degenerative spondylosis mostly affecting the facet joints that hurt L5-S1 through L3-L4 levels in decreasing order of severity. Patient was placed on valium as needed. Patient was also placed on Lidoderm patch and Toradol. PT was consulted. Patient was given dexamethasone in the emergency room. The following day, pain was much improved. Patient was able to ambulate with physical therapy. Patient was advised to follow up with her freedom of information officer. Leukocytosis increased secondary to dexamethasone. There were no signs of infection. Patient was afebrile. Patient was feeling much better and was discharged home. On the day of discharge, patient stated she was feeling better. Patient was able to ambulate. Back pain improved. Patient denied any chest pain or palpitations. No shortness of breath. No headaches or dizziness. No lightheadedness. No nausea, vomiting, or abdominal pain. No fevers or chills. No dysuria or burning with urination. No weakness in her muscles. No tingling or numbness. No diarrhea or constipation. Physical exam: General: Awake and alert lying in bed in no acute distress HEENT: Normocephalic, atraumatic. Extraocular muscles intact, pupils equal and reactive, no scleral icterus. Oropharynx is pink and moist. No pharyngeal erythema or exudate appreciated. Neck is supple. Hearing grossly intact. Ears and nose externally unremarkable. Cardiovascular: Regular rhythm. Normal S1 and S2. No murmurs, rubs, or gallops appreciated Pulmonary: Normal respiratory effort. No rhonchi, rales, or wheezing appreciated. Gastrointestinal: Soft, nondistended. Nontender. Positive bowel sounds all 4 quadrants. No guarding. Musculoskeletal: Moves all extremities. Decreased range of motion right lower extremity. Positive improved right lumbar and sacral paraspinal muscle tenderness. Central nervous system: AAOx3, CN 2-12 grossly intact. 5/5 muscle strength all extremities. Dermatologic: Skin warm and dry. Please see chart for full details. Follow up instructions: Patient to follow up primary care physician within 3-5 days. Patient given a RX for outpatient physical therapy. All instructions explained to the patient in detail. She both understands and agrees to all instructions. Written instructions also given. Time spent in discharging the patient including chart review, medication reconciliation, discussion with the patient, healthcare or medical, consultants, and nursing staff was approximately 40 minutes.
== END 2018-06-22 21:59 | disposition home or self-care (01) ==
LOC: ED 11:46 → ERH 16:28 → 5RNO 18:15 → INTOOBSV 06-22 12:42 → OBSVTOIN 06-22 12:42
PROVIDERS: ADMIT Hospitalist; ATTEND Hospitalist
DX: M54.5 Low back pain (principal); D72.829 Elevated white blood cell count, unspecified; M19.90 Unspecified osteoarthritis, unspecified site; M06.9 Rheumatoid arthritis, unspecified; M43.6 Torticollis; Z85.3 Personal history of malignant neoplasm of breast; Z90.13 Acquired absence of bilateral breasts and nipples; Z91.041 Radiographic dye allergy status; Z91.048 Other nonmedicinal substance allergy status; Z80.3 Family history of malignant neoplasm of breast; Z82.0 Family history of epilepsy and other diseases of the nervous system
CPT/HCPCS: 36415; 72110; 80048; 80053; 85025; 96372; 96374; 96376; 97161; 97530; 99285; G0378; G8978; G8979; J1100; J1885

== ENCOUNTER 2018-08-08 19:37 | Emergency (ER) | payer MEDICAID ==
[2018-08-08] MEDS ORDERED: Oxycodone/Acetaminophen 5/325 mg Tab PO STA (20:00)
[2018-08-08 20:05] VITALS: RESP 18; TEMP 98.7; BMI 35.7
--- NOTE | 2018-08-08 20:14 | ED PDOC ---
Arrival/HPI - General Chief Complaint: Finger,Hand,&Wrist Time Seen by Provider: 08/08/18 19:49 - History of Present Illness Narrative History of Present Illness (Text): 08/08/18 20:09 53 f with hx carpal tunnel syndrome with remote surgical management presents to the ED with chief complaint of left thumb pain after a direct contusion to the thumb, sustained yesterday, hit medial aspect of hand on edge of wall, noticed pain right after injury, reports tingling in the 1st and 2nd digits, pain with flexion of the thumb. No other injury sustained. Past Medical History - Infectious Disease Hx of Infectious Diseases: None - Tetanus Immunization Tetanus Immunization: Unknown - Cardiac Hx Cardiac Disorders: No - Pulmonary Hx Respiratory Disorders: No - Neurological Hx Neurological Disorder: No - HEENT Hx HEENT Disorder: No - Renal Hx Renal Disorder: No - Endocrine/Metabolic Hx Endocrine Disorders: No - Hematological/Oncological Hx Blood Disorders: Yes Hx Cancer: Yes (Breast Cancer) - Integumentary Hx Dermatological Disorder: No - Musculoskeletal/Rheumatological Hx Arthritis: Yes Hx Rheumatoid Arthritis: Yes - Gastrointestinal Hx Gastrointestinal Disorders: No - Genitourinary/Gynecological Hx Genitourinary Disorders: No - Psychiatric Hx Psychophysiologic Disorder: Yes Hx Substance Use: No Other/Comment: Difficulty Sleeping - Surgical History Hx Mastectomy: Yes (Bilateral mastectomy/ 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 attorney) - Anesthesia Hx Anesthesia Reactions: No Hx Malignant Hyperthermia: No - Suicidal Assessment Feels Threatened In Home Enviroment: No Family/Social History Family/Social History: No Known Family HX Smoking Status: Never Smoked Hx Alcohol Use: No Hx Substance Use: No Hx Substance Use Treatment: No Allergies/Home Meds Allergies/Adverse Reactions: Allergies iodine Allergy (Intermediate, Verified 08/08/18 19:52) RASH adhesive tape Allergy (Verified 08/08/18 19:52) URTICARIA Home Medications: Home Meds Medication Instructions Recorded Confirmed Zolpidem [Ambien] 5 mg PO HS PRN 10/18/17 08/08/18 Methotrexate [Methotrexate Sodium] 25 mg IJ Q2W 06/06/18 08/08/18 Review of Systems - Physician Review All systems were reviewed & negative as marked: Yes Physical Exam - Physical Exam Narrative Physical Exam (Text): 08/08/18 20:14 Gen: VS reviewed, alert, well developed, well nourished, nontoxic, mild distress Eye: EOMI, PERRL Neck: no JVD, supple Ext: no edema, there is moderate tenderness around the left MCP joint, no significant swelling, +tinnel tap at carpal tunnel, limited ROM of the left thumb second to pain, no snuffbox tenderness Skin: good color, no rash, no cyanosis Psych: responds appropriately to questions, normal affect Neuro: oriented x3, CN2-12 intact grossly, motor intact, sensation intact Vital Signs Temp Pulse Resp BP Pulse Ox 08/08/18 19:53 98.7 F 79 18 122/87 99 Medical Decision Making ED Course and Treatment: 08/08/18 20:15 patient seen for left thumb contusion, will provide anagesia and splint, refer to hand specialist. i have discussed with the patient it is possible that her carpal tunnel could be reactivated in light of trauma and soft tissue swelling - RAD Interpretation Narrative RAD Interpretations (Text): 08/08/18 20:49 hand xr my read: no fx or dislocation Radiology Orders: 08/08/18 20:01 HAND LEFT 3 VIEWS ROUTINE [RAD] Stat Domestic Maid: ED Physician Disposition/Present on Arrival - Present on Arrival Any Indicators Present on Arrival: No History of DVT/PE: No History of Uncontrolled Diabetes: No Urinary Catheter: No History of Decub. Ulcer: No History Surgical Site Infection Following: None - Disposition Have Diagnosis and Disposition been Completed?: Yes Diagnosis: Thumb contusion Disposition: HOME/ ROUTINE Disposition Time: 20:49 Patient Plan: Discharge Patient Problems: Current Active Problems Problem Status Onset Thumb contusion Acute Condition: STABLE Discharge Instructions (ExitCare): Contusion (DC) Additional Instructions: follow up with a hand specialist. Referrals: Helder Victoria MD [Staff Provider] - Follow up with primary Dillan,Solitario Victor MD [Staff Provider] - Follow up with primary Forms: [employer] (Finnish), WORK NOTE
[2018-08-08 21:49] VITALS: BP 120/75; PULSE 80; O2SAT 100
--- NOTE | 2018-08-09 14:39 | RAD ---
PROCEDURE: Left Hand Radiographs. HISTORY: injury, focus proximal thumb COMPARISON: None. TECHNIQUE: 3 views obtained. FINDINGS: BONES: There is periarticular bone demineralization. There is no acute displaced fracture or bone destruction. Bone alignment is normal. JOINTS: There is moderate degenerative osteoarthrosis in the distal interphalangeal joints and mild degenerative osteoarthrosis in the proximal interphalangeal joint. SOFT TISSUES: Normal. OTHER FINDINGS: None. IMPRESSION: No acute displaced fracture or dislocation
== END 2018-08-08 21:30 | disposition home or self-care (01) ==
LOC: ED 19:37
DX: S60.012A Contusion of left thumb without damage to nail, initial encounter (principal); W22.01XA Walked into wall, initial encounter; Z85.3 Personal history of malignant neoplasm of breast; M06.9 Rheumatoid arthritis, unspecified